=== PATIENT | female | born 1965 | race Caucasian/White ===

== ENCOUNTER 2023-10-08 18:19 | Inpatient (IN) | payer BC ==
[~2023-10-08] VITALS: Ht 175.3 cm; Wt 113.6 kg
[2023-10-08] MEDS ORDERED: HYDROmorphone 1 mg/ml syringe IV ONE (20:35)
[2023-10-08] MEDS ORDERED: ondansetron/PF 4mg/2ml inj IV ONE (20:35)
[2023-10-08] MEDS ORDERED: ringers solution, lacted 1,000 ML IV ONE (21:00)
[2023-10-08 23:11] LABS: BASOPHILS % (AUTO) 0.1 % (0-1); EOSINOPHILS % (AUTO) 0.1 % (0-6); HEMATOCRIT 42.8 % (35.0-45.0); LYMPHOCYTES # (AUTO) 1.6 X10'3 (1.1-4.8); LYMPHOCYTES % (AUTO) 9.4 % (21-51); MEAN CORPUSCULAR HEMOGLOBIN 29.6 PG (27.0-31.0); MEAN CORPUSCULAR HGB CONC 32.7 g/dL (33.0-36.5); MEAN CORPUSCULAR VOLUME 90.8 FL (78-98); MEAN PLATELET VOLUME 9.9 FL (7.4-10.4); MONOCYTES # (AUTO) 0.8 X10'3 (0-0.9); MONOCYTES % (AUTO) 4.7 % (2-12); NEUTROPHILS # (AUTO) 14.3 X10'3 (1.8-7.7); NEUTROPHILS % (AUTO) 85.7 % (42-75); PLATELET COUNT 246 X10'3 (140-440); RED BLOOD COUNT 4.72 X10'6 (4.20-5.60); RED CELL DISTRIBUTION WIDTH 14.9 % (11.5-14.5); WHITE BLOOD COUNT 16.7 X10'3 (4.5-11.0)
[2023-10-08 23:18] LABS: ALANINE AMINOTRANSFERASE 43 U/L (12-78); ALBUMIN 3.4 G/DL (3.4-5.0); ALBUMIN/GLOBULIN RATIO 1.1 (1.1-1.5); ALKALINE PHOSPHATASE 110 IU/L (46-116); ANION GAP 8 (8-16); ASPARTATE AMINO TRANSFERASE 18 U/L (10-37); BILIRUBIN,TOTAL 0.3 MG/DL (0.1-1.0); BLOOD UREA NITROGEN 13 MG/DL (7-18); BUN/CREATININE RATIO 15.1 (10.0-20.0); CALCIUM 8.8 MG/DL (8.5-10.1); CHLORIDE 105 MMOL/L (99-107); CREATININE 0.86 MG/DL (0.40-0.90); GLUCOSE 133 MG/DL (70-104); MAGNESIUM 1.9 MG/DL (1.5-2.4); POTASSIUM 3.9 MMOL/L (3.5-5.1); SODIUM 141 MMOL/L (135-145); TOTAL CARBON DIOXIDE 28.4 MMOL/L (24-32); TOTAL PROTEIN 6.6 G/DL (6.4-8.2); eCRCL 75 ML/MIN; eGFR 68 ML/MIN
[2023-10-08] MEDS ORDERED: HYDROcodone/acetaminophen 5mg/325mg tablet PO PRN (23:20)
[2023-10-08] MEDS ORDERED: morphine 2 MG/ML inj. syringe IV PRN (23:20)
[2023-10-08] MEDS ORDERED: ondansetron/PF 4mg/2ml inj IV PRN (23:20)
[2023-10-08] MEDS: morphine 4 MG/ML inj SYRINge IV PRN (23:35)
[2023-10-09] VITALS (13 sets, daily range): BP systolic 119–139; BP diastolic 54–74; PULSE 70–88; RESP 11–16; TEMP 98.1–98.6; O2SAT 90–99
[2023-10-09] MEDS ORDERED: mag hydrox/Alum hydrox/simeth 30ml oral suspension PO PRN (00:15)
[2023-10-09] MEDS ORDERED: morphine 2 MG/ML inj. syringe IV PRN ×2 (00:15→07:35)
[2023-10-09] MEDS ORDERED: ondansetron 4mg rapidly disintigrating tab PO PRN (00:15)
[2023-10-09] MEDS ORDERED: bisacodyl 10mg suppository rectal RC PRN (00:15)
[2023-10-09] MEDS ORDERED: acetaminophen 650mg rectal suppository RC PRN (00:15)
[2023-10-09] MEDS ORDERED: magnesium hydroxide 30ml (MOM) UD suspension PO PRN (00:15)
[2023-10-09] MEDS ORDERED: acetaminophen 325mg tablet PO PRN ×2 (00:15)
[2023-10-09] MEDS ORDERED: HYDROmorphone inj. 0.5 MG/0.5 ML DISP.SYRIN IV PRN (00:15)
[2023-10-09] MEDS ORDERED: diphenhydrAMINE 25mg capsule PO PRN (00:15)
[2023-10-09] MEDS ORDERED: metoclopramide 5 mg/ml inj IV PRN (00:15)
[2023-10-09] MEDS ORDERED: HYDROcodone/acetaminophen 5mg/325mg tablet PO PRN (00:15)
[2023-10-09] MEDS ORDERED: diphenhydrAMINE 50 mg/ml inj IV PRN (00:15)
[2023-10-09] MEDS: normal saline 1000ml 1,000 ML IV SCH ×3 (00:15→20:15)
[2023-10-09] MEDS ORDERED: ondansetron/PF 4mg/2ml inj IV PRN ×2 (00:15→07:35)
[2023-10-09 01:44] LABS: HEMOGLOBIN A1C 6.1 % (4.5-6.2)
[2023-10-09 01:48] LABS: PHOSPHORUS 3.5 MG/DL (2.3-4.5); PRO BRAIN NATRIURETIC PEPTIDE 39 PG/ML (0-125); THYROID STIMULATING HORMONE 2.52 ulU/ml (0.34-4.50)
[2023-10-09] MEDS: morphine 4 MG/ML inj SYRINge IV PRN ×2 (04:24→08:19)
[2023-10-09] MEDS ORDERED: meperidine/PF 25mg/ml syringe IV PRN ×3 (07:35)
[2023-10-09] MEDS ORDERED: ringers solution, lacted 1,000 ML IV SCH (07:35)
[2023-10-09] MEDS ORDERED: morphine 4 MG/ML inj SYRINge IV PRN (07:35)
[2023-10-09] MEDS ORDERED: enalaprilat dihydrate 2.5mg/2ml vial IV PRN (07:35)
[2023-10-09] MEDS ORDERED: labetalol 20mg/4ml (5mg/ml) syringe IV PRN (07:35)
[2023-10-09] MEDS ORDERED: proCHLORperazine 10 MG/2 ml inj IV PRN (07:35)
[2023-10-09] MEDS: pantoprazole 40MG/NS 100ML BAG 100 ML IV SCH (07:57)
[2023-10-09] MEDS: docusate sod 100mg capsule PO SCH ×2 (08:00→20:32)
[2023-10-09 08:53] LABS: APTT 29 SECONDS (22-32)
[2023-10-09 08:54] LABS: PROTHROMBIN TIME 10.6 SECONDS (9.0-12.0)
[2023-10-09] MEDS ORDERED: sevoflurane 250ml liquid IH ONE (09:30)
[2023-10-09] MEDS ORDERED: fentaNYL /PF 50mcg/ml 5ml ampule ONE (09:38)
[2023-10-09] MEDS ORDERED: midazolam 1 mg/ML 2ml injection ONE (09:38)
[2023-10-09] MEDS ORDERED: ROPIVAcaine 0.5% (5mg/ml) 30ml vial ONE (09:40)
[2023-10-09] MEDS ORDERED: LIDOcaine 2% (20mg/ml) 5ml vial ONE (09:40)
[2023-10-09] MEDS ORDERED: propofol inj 20 ML IV ONE (09:40)
[2023-10-09] MEDS ORDERED: ceFAZolin 1000mg inj ONE ×3 (10:07)
[2023-10-09] MEDS ORDERED: dexamethasone sod phosphate 4mg/ml inj. ONE (10:16)
[2023-10-09] MEDS ORDERED: ondansetron/PF 4mg/2ml inj ONE (10:16)
[2023-10-09] MEDS: morphine 2 MG/ML inj. syringe IV PRN ×2 (15:58→20:31)
[2023-10-09] MEDS ORDERED: cefazolin 2gm/D5W 100mL 100 ML IV ONE (16:00)
[2023-10-09] MEDS ORDERED: CEFAZOLIN 2 GM injection IM ONE (16:00)
[2023-10-09] MEDS ORDERED: temazepam 15mg capsule PO PRN (21:00)
[2023-10-10] MEDS: morphine 2 MG/ML inj. syringe IV PRN ×2 (01:14→16:59)
[2023-10-10 02:00] VITALS: BP 120/61; PULSE 78; RESP 16; TEMP 97.9; O2SAT 91
[2023-10-10 05:39] LABS: BASOPHILS % (AUTO) 0.2 % (0-1); EOSINOPHILS % (AUTO) 0 % (0-6); HEMATOCRIT 38.7 % (35.0-45.0); HEMOGLOBIN 12.7 g/dl (12.0-16.0); LYMPHOCYTES # (AUTO) 1.3 X10'3 (1.1-4.8); LYMPHOCYTES % (AUTO) 7.1 % (21-51); MEAN CORPUSCULAR HEMOGLOBIN 29.7 PG (27.0-31.0); MEAN CORPUSCULAR HGB CONC 32.7 g/dL (33.0-36.5); MEAN CORPUSCULAR VOLUME 90.7 FL (78-98); MEAN PLATELET VOLUME 10.6 FL (7.4-10.4); MONOCYTES # (AUTO) 0.9 X10'3 (0-0.9); MONOCYTES % (AUTO) 5.1 % (2-12); NEUTROPHILS # (AUTO) 15.7 X10'3 (1.8-7.7); NEUTROPHILS % (AUTO) 87.6 % (42-75); PLATELET COUNT 202 X10'3 (140-440); RED BLOOD COUNT 4.27 X10'6 (4.20-5.60); RED CELL DISTRIBUTION WIDTH 14.4 % (11.5-14.5); WHITE BLOOD COUNT 17.9 X10'3 (4.5-11.0)
[2023-10-10 06:14] LABS: ALANINE AMINOTRANSFERASE 29 U/L (12-78); ALBUMIN 2.8 G/DL (3.4-5.0); ALBUMIN/GLOBULIN RATIO 0.9 (1.1-1.5); ALKALINE PHOSPHATASE 101 IU/L (46-116); ANION GAP 9 (8-16); ASPARTATE AMINO TRANSFERASE 13 U/L (10-37); BILIRUBIN,TOTAL 0.5 MG/DL (0.1-1.0); BLOOD UREA NITROGEN 8 MG/DL (7-18); BUN/CREATININE RATIO 12.1 (10.0-20.0); CALCIUM 8.4 MG/DL (8.5-10.1); CHLORIDE 105 MMOL/L (99-107); CHOL/HDL RATIO 3.6 (0.00-4.99); CHOLESTEROL 192 MG/DL (0-200); CREATININE 0.66 MG/DL (0.40-0.90); GLUCOSE 147 MG/DL (70-104); HDL CHOLESTEROL 54 MG/DL (35-60); LDL CHOLESTEROL 119 MG/DL (50-100); SODIUM 139 MMOL/L (135-145); TRIGLYCERIDES 59 MG/DL (20-135); eCRCL 98 ML/MIN; eGFR > 90 ML/MIN
[2023-10-10] MEDS: normal saline 1000ml 1,000 ML IV SCH ×2 (06:15→16:15)
[2023-10-10 07:00] VITALS: BP 115/47; PULSE 74; RESP 16; TEMP 98; O2SAT 93
[2023-10-10] MEDS: docusate sod 100mg capsule PO SCH ×2 (08:09→21:27)
[2023-10-10] MEDS: pantoprazole 40MG/NS 100ML BAG 100 ML IV SCH (08:09)
[2023-10-10] MEDS: HYDROcodone/acetaminophen 10/325mg tab PO PRN ×3 (09:57→21:27)
[2023-10-10 10:03] VITALS: RESP 17; O2SAT 97
[2023-10-10 11:22] VITALS: BP 119/48; PULSE 74; RESP 16; TEMP 98.3; O2SAT 94
[2023-10-10] MEDS ORDERED: ASPI-612 PO ×2 (13:05→14:53)
[2023-10-10] MEDS ORDERED: ACET-1008 PO (13:05)
[2023-10-10] MEDS ORDERED: HYDR-3965 PO (13:05)
[2023-10-10 18:00] VITALS: BP 106/48; PULSE 90; RESP 20; TEMP 98.5; O2SAT 94
[2023-10-10 22:00] VITALS: BP 136/49; PULSE 85; RESP 13; TEMP 98.1; O2SAT 96
[2023-10-11] MEDS: normal saline 1000ml 1,000 ML IV SCH ×3 (00:59→22:15)
[2023-10-11] MEDS: HYDROcodone/acetaminophen 10/325mg tab PO PRN ×4 (04:01→20:11)
[2023-10-11 07:03] LABS: BASOPHILS # (AUTO) 0.1 X10'3 (0-0.2); BASOPHILS % (AUTO) 0.4 % (0-1); EOSINOPHILS % (AUTO) 0.2 % (0-6); HEMOGLOBIN 11.6 g/dl (12.0-16.0); LYMPHOCYTES # (AUTO) 1.7 X10'3 (1.1-4.8); LYMPHOCYTES % (AUTO) 13.7 % (21-51); MEAN CORPUSCULAR HEMOGLOBIN 30.2 PG (27.0-31.0); MEAN CORPUSCULAR HGB CONC 33.2 g/dL (33.0-36.5); MEAN CORPUSCULAR VOLUME 91.1 FL (78-98); MEAN PLATELET VOLUME 10.6 FL (7.4-10.4); MONOCYTES # (AUTO) 1.1 X10'3 (0-0.9); MONOCYTES % (AUTO) 8.5 % (2-12); NEUTROPHILS # (AUTO) 9.7 X10'3 (1.8-7.7); NEUTROPHILS % (AUTO) 77.2 % (42-75); PLATELET COUNT 170 X10'3 (140-440); RED BLOOD COUNT 3.84 X10'6 (4.20-5.60); RED CELL DISTRIBUTION WIDTH 14.4 % (11.5-14.5); WHITE BLOOD COUNT 12.5 X10'3 (4.5-11.0)
[2023-10-11 07:14] VITALS: BP 134/69; PULSE 85; RESP 12; TEMP 98.7; O2SAT 93
[2023-10-11 07:17] LABS: ALANINE AMINOTRANSFERASE 20 U/L (12-78); ALBUMIN 2.6 G/DL (3.4-5.0); ALBUMIN/GLOBULIN RATIO 0.9 (1.1-1.5); ALKALINE PHOSPHATASE 87 IU/L (46-116); ANION GAP 5 (8-16); ASPARTATE AMINO TRANSFERASE 16 U/L (10-37); BILIRUBIN,TOTAL 0.6 MG/DL (0.1-1.0); BLOOD UREA NITROGEN 10 MG/DL (7-18); BUN/CREATININE RATIO 13.2 (10.0-20.0); CALCIUM 8.1 MG/DL (8.5-10.1); CHLORIDE 107 MMOL/L (99-107); CREATININE 0.76 MG/DL (0.40-0.90); GLUCOSE 130 MG/DL (70-104); POTASSIUM 3.7 MMOL/L (3.5-5.1); SODIUM 140 MMOL/L (135-145); TOTAL CARBON DIOXIDE 28.5 MMOL/L (24-32); TOTAL PROTEIN 5.6 G/DL (6.4-8.2); eCRCL 85 ML/MIN; eGFR 78 ML/MIN
[2023-10-11 08:04] LABS: LARGE PLATELETS FEW; PLATELET ESTIMATE NORMAL
[2023-10-11] MEDS: docusate sod 100mg capsule PO SCH ×2 (08:15→20:11)
[2023-10-11 08:40] VITALS: RESP 16; O2SAT 97
[2023-10-11] MEDS: pantoprazole 40MG/NS 100ML BAG 100 ML IV SCH (09:12)
[2023-10-11 10:00] VITALS: BP 119/45; PULSE 77; RESP 16; TEMP 98.5; O2SAT 97
[2023-10-11 18:00] VITALS: BP 125/58; PULSE 85; RESP 16; TEMP 99.6; O2SAT 92
[2023-10-11 22:00] VITALS: BP 146/67; PULSE 84; RESP 16; TEMP 99.3; O2SAT 96
[2023-10-12] MEDS: HYDROcodone/acetaminophen 10/325mg tab PO PRN ×2 (05:20→10:26)
[2023-10-12 06:00] VITALS: BP 132/73; PULSE 81; RESP 16; TEMP 98.8; O2SAT 94
[2023-10-12 06:57] LABS: BASOPHILS # (AUTO) 0.1 X10'3 (0-0.2); BASOPHILS % (AUTO) 0.6 % (0-1); EOSINOPHILS # (AUTO) 0.1 X10'3 (0-0.9); EOSINOPHILS % (AUTO) 0.6 % (0-6); HEMATOCRIT 37.1 % (35.0-45.0); HEMOGLOBIN 12.2 g/dl (12.0-16.0); LYMPHOCYTES # (AUTO) 1.3 X10'3 (1.1-4.8); LYMPHOCYTES % (AUTO) 11.5 % (21-51); MEAN CORPUSCULAR HEMOGLOBIN 29.9 PG (27.0-31.0); MEAN CORPUSCULAR HGB CONC 32.8 g/dL (33.0-36.5); MEAN CORPUSCULAR VOLUME 90.9 FL (78-98); MEAN PLATELET VOLUME 10.3 FL (7.4-10.4); MONOCYTES # (AUTO) 0.9 X10'3 (0-0.9); MONOCYTES % (AUTO) 7.6 % (2-12); NEUTROPHILS # (AUTO) 9.2 X10'3 (1.8-7.7); NEUTROPHILS % (AUTO) 79.7 % (42-75); PLATELET COUNT 185 X10'3 (140-440); RED BLOOD COUNT 4.07 X10'6 (4.20-5.60); RED CELL DISTRIBUTION WIDTH 14.4 % (11.5-14.5); WHITE BLOOD COUNT 11.6 X10'3 (4.5-11.0)
[2023-10-12 07:03] LABS: ANION GAP 8 (8-16); CHLORIDE 106 MMOL/L (99-107); GLUCOSE 141 MG/DL (70-104); POTASSIUM 3.7 MMOL/L (3.5-5.1); SODIUM 140 MMOL/L (135-145); TOTAL CARBON DIOXIDE 25.7 MMOL/L (24-32)
[2023-10-12 07:04] LABS: ALANINE AMINOTRANSFERASE 30 U/L (12-78); ALBUMIN 2.6 G/DL (3.4-5.0); ALBUMIN/GLOBULIN RATIO 0.8 (1.1-1.5); ALKALINE PHOSPHATASE 102 IU/L (46-116); ASPARTATE AMINO TRANSFERASE 16 U/L (10-37); BILIRUBIN,TOTAL 0.7 MG/DL (0.1-1.0); BLOOD UREA NITROGEN 9 MG/DL (7-18); BUN/CREATININE RATIO 12.5 (10.0-20.0); CALCIUM 8.3 MG/DL (8.5-10.1); CREATININE 0.72 MG/DL (0.40-0.90); TOTAL PROTEIN 5.7 G/DL (6.4-8.2); eCRCL 90 ML/MIN; eGFR 83 ML/MIN
[2023-10-12] MEDS ORDERED: aspirin 81mg, enteric-coated 1 TAB TABLET.DR PO ONE (07:55)
[2023-10-12] MEDS: pantoprazole 40MG/NS 100ML BAG 100 ML IV SCH (08:29)
[2023-10-12] MEDS: docusate sod 100mg capsule PO SCH (08:29)
== END 2023-10-12 13:15 | disposition home or self-care (01) | DRG 494 ==
LOC: ER 18:20 → ED HOLD 10-09 00:16 → ORTHO 4S 10-09 12:33
PROVIDERS: ADMIT Family Medicine; ATTEND Internal Medicine
PROC: 0QSH35Z Reposition Left Tibia with External Fixation Device, Percutaneous Approach (ICD-10-PCS; principal; 2023-10-09 09:30)
DX: S82.142A Displaced bicondylar fracture of left tibia, initial encounter for closed fracture (principal); E78.5 Hyperlipidemia, unspecified; W18.39XA Other fall on same level, initial encounter; I10 Essential (primary) hypertension; Z20.822 Contact with and (suspected) exposure to COVID-19; E66.9 Obesity, unspecified; Z68.37 Body mass index [BMI] 37.0-37.9, adult; Z88.2 Allergy status to sulfonamides; Y93.89 Activity, other specified; Y92.89 Other specified places as the place of occurrence of the external cause; Y99.8 Other external cause status
CPT/HCPCS: 99285; Z7506; Z7508; 36415; 71045; 73560; 73590; 73700; 76000; 80053; 80061; 83036; 83735; 83880; 84100; 84145; 84443; 85008; 85025; 85610; 85730; 87811; 97162; 97530; 97542; A4314; A4615; A4618; A6446; A6449; C1713; C9113; G0378; J0690; J1100; J1170; J2175; J2250; J2270; J2405; J2704; J2795; J3010; J3490; J7030; J7120